=== PATIENT | female | born 1995 | race Caucasian/White ===

== ENCOUNTER 2017-10-01 08:09 | Emergency (ER) | payer OTHER ==
[2017-10-01 08:16] VITALS: O2SAT 97
[2017-10-01] MEDS ORDERED: PHENAZOPYRIDINE HCL 200 MG TAB PO ONE (08:17)
--- NOTE | 2017-10-01 08:50 | EDPHY ---
H & P Time Seen by Provider: 10/01/17 08:28 HPI/ROS: This patient complains dysuria and vaginal pain since intercourse yesterday. She reports no other associated symptoms. She denies any known vaginal injury or laceration from intercourse. She came in by private vehicle for evaluation of the symptoms. ROS: No fevers or chills. GI: No nausea vomiting. : No flank pain. No gross hematuria. No vaginal discharge. Last menstrual period was normal timing Integumentary: No pallor or diaphoresis. Past Medical/Surgical History: Otherwise healthy Smoking Status: Never smoked Physical Exam: Pleasant young female with normal vital signs General Appearance: Alert, no distress. Eyes: Pupils equal and round no pallor or injection. ENT, Mouth: Mucous membranes moist. Respiratory: There are no retractions, lungs are clear to auscultation. Cardiovascular: Regular rate and rhythm. Gastrointestinal: Abdomen is soft and nontender, no masses, bowel sounds normal. Back: No CVA tenderness Neurological: GCS 15 Skin: Warm and dry, no rashes. Musculoskeletal: Neck is supple nontender. Extremities are symmetrical, full range of motion. Psychiatric: Mood and affect normal DIFFERENTIAL DIAGNOSIS: After history and physical exam differential diagnosis was considered for cystitis, vaginal injury, vaginal yeast infection or other vaginitis, pyelonephritis Constitutional: Initial Vital Signs Temperature (C) 36.9 C 10/01/17 08:13 Heart Rate 87 10/01/17 08:13 Respiratory Rate 16 10/01/17 08:13 Blood Pressure 128/95 H 10/01/17 08:13 O2 Sat (%) 97 10/01/17 08:13 O2 Delivery Mode Room Air Allergies/Adverse Reactions: amoxicillin [Amoxicillin] Allergy (Verified 10/01/17 08:16) Rash clindamycin Allergy (Verified 10/01/17 08:16) Rash sulfamethoxazole [From Septra] Allergy (Verified 10/01/17 08:16) Rash trimethoprim [From Septra] Allergy (Verified 10/01/17 08:16) Rash Home Medications: Medication Instructions Recorded Bcp 01/22/12 Fluticasone Hfa 110 Mcg [Flovent PRN 08/11/12 110 MCG Hfa MDI (RX)] Metoprolol Succinate 10/01/17 Nitrofurantoin Macrobid [Macrobid] 100 mg PO BID #10 cap 10/01/17 Phenazopyridine HCl [Pyridium 200 mg PO TID PRN #6 tab 10/01/17 200mg (RX)] Singulair 10/01/17 MDM/Departure - MDM Medications Given: Discontinued Medications Phenazopyridine HCl (Pyridium) 200 mg PO EDNOW ONE Stop: 10/01/17 08:18 Last Admin: 10/01/17 09:03 Dose: 200 mg ED Course/Re-evaluation: Studies: Urinalysis with 10-15 white cells, bacteria and positive leuk esterase consistent with cystitis. test is negative Discussion: Patient presents with cystitis-uncomplicated Treated with Pyridium and Macrobid plan to continue the same as an outpatient. Counseled regarding her diagnosis and answered questions prior to her discharge home. She understands need to return to the emergency department should she have any worsening of her symptoms despite the treatment plan. - Depart Disposition: Home, Routine, Self-Care Clinical Impression: Cystitis Condition: Good Instructions: Urinary Tract Infection in Women (ED) Additional Instructions: Diagnosis: Cystitis Plan: Drink plenty fluids Macrobid antibiotic Peridium if needed for burning. Return for any significant worsening despite the treatment plan. Prescriptions: Nitrofurantoin Macrobid [Macrobid] 100 mg PO BID #10 cap Phenazopyridine HCl [Pyridium 200mg (RX)] 200 mg PO TID PRN #6 tab PRN Reason: dysuria Referrals: Kalina Mcnamara [Primary Care Provider] - As per Instructions
[2017-10-01] MEDS ORDERED: NITROFURANTOIN MACROBID 100 MG CAP PO ONE (09:18)
[2017-10-01 09:33] VITALS: BP 119/89; PULSE 83; RESP 18; TEMP 98.1
== END 2017-10-01 09:31 | disposition home or self-care (01) ==
LOC: CED 08:09
DX: N30.90 Cystitis, unspecified without hematuria (principal); B96.89 Other specified bacterial agents as the cause of diseases classified elsewhere
CPT/HCPCS: 81003-PO; 81015-PO; 81025-PO